=== PATIENT | female | born 1990 | race Caucasian/White ===

== ENCOUNTER 2021-07-19 05:09 | Inpatient (IN) ==
[2021-07-19] MEDS ORDERED: CITRIC ACID/SODIUM CITRATE 30 ML UDCUP PO PRN (05:22)
[2021-07-19] MEDS ORDERED: ceFAZolin 2,000 MG/50 ML DUPLEX IV PRN (05:22)
[2021-07-19] MEDS ORDERED: FAMOTIDINE 20 MG/2 ML VIAL IV PRN (05:22)
[2021-07-19] MEDS ORDERED: LACTATED RINGERS 1,000 ML IV ONE (05:25)
[2021-07-19] MEDS ORDERED: OXYTOCIN/LR 20 UNIT/1,000 ML BAG IV PRN (05:26)
[2021-07-19] MEDS ORDERED: LACTATED RINGERS 1,000 ML IV SCH (05:30)
[2021-07-19 05:57] LABS: Basophils % 0.6 % (0.0-0.8); Eosinophils # 0.2 10*3/uL (0.0-0.87); Eosinophils % 2.7 % (0.00-10.9); Hematocrit 31.9 VOL% (35.7-47.0); Hemoglobin 10.2 GM/DL (12.0-16.0); Immature Granulocytes % 0.6 %; Immature Granulocytes Absolute 0.04 #; Lymphocytes # 1.9 10*3/uL (1.4-4.0); Mean Corpuscular Volume 86.4 FL (87-102); Monocytes % 6.8 % (1.7-12.7); Neutrophils % 63.3 % (38.7-73.9); Platelet Count 201 T/CUMM (130-400); Red Blood Count 3.69 MC/CUMM (3.8-5.5); Red Cell Distribution Width 13.2 % (9.3-17.3); White Blood Count 7.2 T/CUMM (4-12)
[2021-07-19 06:21] LABS: Albumin 2.5 G/DL (3.4-5.0); Bilirubin,Total 0.7 MG/DL (0.20-1.00); Calcium 8.5 MG/DL (8.5-10.1); Osmolality,Calculated 276.4 MOS/KG (273-304); Total Protein 6.3 G/DL (6.4-8.2)
[2021-07-19] MEDS ORDERED: ONDANSETRON 4 MG/2 ML VIAL ONE (07:14)
[2021-07-19] MEDS ORDERED: BUPIVACAINE SPINAL 0.75% 2 ML AMP SPINAL ONE (07:14)
[2021-07-19] MEDS ORDERED: ePHEDrine 50 MG/ML VIAL ONE (07:26)
[2021-07-19] MEDS ORDERED: PHENYLEPHRINE 10 MG/1 ML VIAL IV ONE (07:26)
[2021-07-19] MEDS ORDERED: propofoL 200 MG/20 ML VIAL IV ONE (07:59)
[2021-07-19] MEDS ORDERED: SODIUM CHLORIDE 0.9% 100 ML IV ONE (07:59)
[2021-07-19] MEDS ORDERED: DEXAMETHASONE 4 MG/1 ML VIAL ONE (08:00)
[2021-07-19] MEDS ORDERED: ACETAMINOPHEN INJ 1,000 MG/100 ML VIAL IV ONE (08:00)
[2021-07-19] MEDS ORDERED: KETOROLAC 30 MG/1 ML VIAL ONE (08:00)
[2021-07-19 08:06] LABS: Cord Arterial Blood HCO3 20.7 MMOL/L
[2021-07-19 08:07] LABS: Cord Venous Blood HCO3 22.5 MMOL/L; Cord Venous Blood PO2 23.3 MMHG
[2021-07-19 08:10] LABS: Bilirubin,Urine Negative (Negative); Blood, Urine Negative (Negative); Glucose,Urine (UA) Negative (Negative); Ketones,Urine 20 mg/dL (Negative); Mucus,Urine Occasional /LPF (Occasional); Nitrite,Urine Negative (Negative); Protein,Urine Negative; RBC,Urine <1 /HPF (0-4); Squamous Epithelial Cell,Urine Occasional /HPF (0-10); Urine Appearance CLEAR (Clear); Urine Color Yellow (Yellow); Urine Specific Gravity 1.013 (1.001-1.035); Urine Urobilinogen < 2.0 EU/DL (0.2-1.0)
[2021-07-19] MEDS ORDERED: PHENYLEPHRINE 1 MG/10 ML SYRINGE IV ONE (08:23)
[2021-07-19] MEDS ORDERED: MEASLES/MUMPS/RUBELLA VACCINE 0.5 ML VIAL SUBCUT ONE (12:23)
[2021-07-19] MEDS ORDERED: OXYTOCIN/LR 20 UNIT/1,000 ML BAG IV ONE (12:23)
[2021-07-19] MEDS ORDERED: BISACODYL 10 MG SUPP RECTAL PRN (12:23)
[2021-07-19] MEDS ORDERED: ONDANSETRON 4 MG/2 ML VIAL IV PRN (12:23)
[2021-07-19] MEDS ORDERED: BENZOCAINE 20%/MENTHOL 0.5% SPRAY 56 GM CAN TOP PRN (12:23)
[2021-07-19] MEDS ORDERED: RHO(D) IMMUNE GLOBULIN 300 MCG SYRINGE IM ONE (12:23)
[2021-07-19] MEDS ORDERED: DIPH/TET/ACEL PERT BOOSTER VACCINE 0.5 ML VIAL IM ONE (12:23)
[2021-07-19] MEDS ORDERED: LANOLIN 50% CREAM 0.3 OZ TUBE TOP PRN (12:23)
[2021-07-19] MEDS ORDERED: HYDROCORTISONE 2.5% RECTAL CREAM 30 GM TUBE TOP PRN (12:23)
[2021-07-19] MEDS ORDERED: WITCH HAZEL PADS 100/JAR TOP PRN (12:23)
[2021-07-19] MEDS ORDERED: ACETAMINOPHEN 325 MG TABLET PO PRN (12:23)
[2021-07-19] MEDS ORDERED: ACETAMINOPHEN 500 MG TABLET PO SCH ×2 (12:27→14:00)
[2021-07-19] MEDS ORDERED: KETOROLAC 30 MG/1 ML VIAL IV SCH ×2 (12:30→14:00)
[2021-07-19] MEDS: oxyCODONE/ACETAMINOPHEN 5-325 MG TABLET PO PRN (12:42)
[2021-07-19] MEDS: ACETAMINOPHEN 500 MG TABLET PO SCH ×2 (15:04→22:17)
[2021-07-19] MEDS: KETOROLAC 30 MG/1 ML VIAL IV SCH ×2 (15:05→21:21)
[2021-07-19] MEDS: DOCUSATE SODIUM 100 MG CAPSULE PO SCH ×2 (19:09→21:21)
[2021-07-20] MEDS: ACETAMINOPHEN 500 MG TABLET PO SCH (02:17)
[2021-07-20] MEDS ORDERED: KETOROLAC 30 MG/1 ML VIAL IV ONE (03:03)
[2021-07-20] MEDS: IBUPROFEN 800 MG TABLET PO PRN ×3 (03:31→22:55)
[2021-07-20] MEDS: oxyCODONE/ACETAMINOPHEN 5-325 MG TABLET PO PRN ×4 (03:31→17:50)
[2021-07-20] MEDS: SIMETHICONE CHEW 125 MG TABLET PO PRN ×2 (03:32→14:15)
[2021-07-20 05:46] LABS: Basophils % 0.3 % (0.0-0.8); Eosinophils # 0.1 10*3/uL (0.0-0.87); Eosinophils % 1.1 % (0.00-10.9); Hematocrit 25.2 VOL% (35.7-47.0); Immature Granulocytes % 0.6 %; Immature Granulocytes Absolute 0.07 #; Lymphocytes # 2.3 10*3/uL (1.4-4.0); Lymphocytes % 19.1 % (21.3-54.2); Mean Corpuscular HGB Conc 32.1 GM/DL (32-36); Mean Corpuscular Volume 87.5 FL (87-102); Mean Platelet Volume 11.1 FL (9.6-12.0); Monocytes % 4.7 % (1.7-12.7); Neutrophils % 74.2 % (38.7-73.9); Platelet Count 187 T/CUMM (130-400); Red Cell Distribution Width 13.2 % (9.3-17.3)
[2021-07-20 06:00] LABS: Hemoglobin 8.1 GM/DL (12.0-16.0); Red Blood Count 2.88 MC/CUMM (3.8-5.5); White Blood Count 11.8 T/CUMM (4-12)
[2021-07-20] MEDS: IRON (CARBONYL)/VIT C/B12/FA TABLET PO SCH (08:32)
[2021-07-20] MEDS: MAGNESIUM HYDROXIDE SUSP 30 ML UDCUP PO PRN ×2 (08:32→22:55)
[2021-07-20] MEDS: DOCUSATE SODIUM 100 MG CAPSULE PO SCH ×2 (08:32→21:00)
[2021-07-21] MEDS: oxyCODONE/ACETAMINOPHEN 5-325 MG TABLET PO PRN ×2 (00:03→06:07)
[2021-07-21] MEDS: IBUPROFEN 800 MG TABLET PO PRN (06:07)
[2021-07-21 09:01] VITALS: BP 105/59
[2021-07-21] MEDS: MAGNESIUM HYDROXIDE SUSP 30 ML UDCUP PO PRN (09:27)
[2021-07-21] MEDS: IRON (CARBONYL)/VIT C/B12/FA TABLET PO SCH (09:27)
[2021-07-21] MEDS: SIMETHICONE CHEW 125 MG TABLET PO PRN (09:27)
[2021-07-21] MEDS: DOCUSATE SODIUM 100 MG CAPSULE PO SCH (09:27)
[2021-07-21] MEDS ORDERED: DIPH/TET/ACEL PERT BOOSTER VACCINE 0.5 ML VIAL IM ONE (10:31)
== END 2021-07-21 11:40 | disposition home or self-care (01) | DRG 784 ==
LOC: N.LD 05:09 → N.OB 12:34
PROVIDERS: ADMIT Specialist; ATTEND Specialist

== ENCOUNTER 2022-09-13 08:02 | Inpatient (IN) ==
[2022-09-13] MEDS ORDERED: ONDANSETRON 4 MG/2 ML VIAL ONE ×2 (08:36→18:11)
[2022-09-13] MEDS ORDERED: ONDANSETRON 4 MG/2 ML VIAL IV STA (08:51)
[2022-09-13] MEDS ORDERED: KETOROLAC 30 MG/1 ML VIAL IV STA (09:04)
[2022-09-13] MEDS ORDERED: SODIUM CHLORIDE 0.9% 1,000 ML IV STA (09:04)
[2022-09-13] MEDS ORDERED: HYDROmorphone 1 MG/1 ML SYRINGE IV STA ×2 (09:04→10:28)
[2022-09-13] MEDS ORDERED: HYDROmorphone 1 MG/1 ML SYRINGE ONE ×2 (09:06→18:19)
[2022-09-13 09:36] LABS: Basophils % 0.5 % (0.0-0.8); Eosinophils # 0.3 10*3/uL (0.0-0.87); Eosinophils % 3.5 % (0.00-10.9); Hematocrit 24.6 VOL% (35.7-47.0); Hemoglobin 6.9 GM/DL (12.0-16.0); Immature Granulocytes % 0.5 %; Immature Granulocytes Absolute 0.04 #; Lymphocytes # 1.1 10*3/uL (1.4-4.0); Lymphocytes % 12.8 % (21.3-54.2); Mean Corpuscular Volume 72.8 FL (87-102); Mean Platelet Volume 10.5 FL (9.6-12.0); Monocytes # 0.3 10*3/uL (0.11-0.8); Monocytes % 3.8 % (1.7-12.7); Neutrophils % 78.9 % (38.7-73.9); Platelet Count 327 T/CUMM (130-400); Red Blood Count 3.38 MC/CUMM (3.8-5.5); Red Cell Distribution Width 17.4 % (9.3-17.3); White Blood Count 8.9 T/CUMM (4-12)
[2022-09-13 09:46] LABS: Mucus,Urine Occasional /LPF (Occasional); RBC,Urine 284 /HPF (0-4); Squamous Epithelial Cell,Urine Few /HPF (0-10)
[2022-09-13 09:47] LABS: Urine Color Yellow (Yellow)
[2022-09-13 09:48] LABS: Bilirubin,Urine Negative (Negative); Blood, Urine Large mg/dL (Negative); Glucose,Urine (UA) Negative (Negative); Ketones,Urine 40 mg/dL (Negative); Nitrite,Urine Negative (Negative); Protein,Urine 30 mg/dL (Negative); Urine Appearance Slightly Cloudy (Clear); Urine Specific Gravity > 1.030 (1.001-1.035); Urine Urobilinogen 0.2 eU/dL (<2.0)
[2022-09-13 10:04] LABS: Hypochromia 1+; Microcytosis 1+
[2022-09-13 10:05] LABS: Ovalocytes Slight; Platelet Estimate Normal; Polychromasia Slight; Tear Drop Cells Slight
[2022-09-13 10:12] LABS: Albumin 3.6 G/DL (3.4-5.0); Bilirubin,Total 0.4 MG/DL (0.20-1.00); Calcium 7.9 MG/DL (8.5-10.1); Osmolality,Calculated 275.8 MOS/KG (273-304); Potassium 3.8 MMOL/L (3.5-5.1); Total Protein 7.1 G/DL (6.4-8.2)
[2022-09-13] MEDS ORDERED: ESTROGENS(CONJ) 25 MG VIAL IV ONE (10:31)
[2022-09-13 10:54] LABS: Mucus,Urine Occasional /LPF (Occasional); RBC,Urine 28 /HPF (0-4); Squamous Epithelial Cell,Urine Few /HPF (0-10)
[2022-09-13 10:55] LABS: Bilirubin,Urine Negative (Negative); Blood, Urine Large mg/dL (Negative); Glucose,Urine (UA) Negative (Negative); Ketones,Urine 40 mg/dL (Negative); Nitrite,Urine Negative (Negative); Protein,Urine Negative (Negative); Urine Appearance Clear (Clear); Urine Color Yellow (Yellow); Urine Specific Gravity > 1.030 (1.001-1.035)
[2022-09-13] MEDS ORDERED: IBUPROFEN 800 MG TABLET PO PRN (10:55)
[2022-09-13] MEDS ORDERED: HYDROmorphone 1 MG/1 ML SYRINGE IV PRN ×3 (10:55→13:10)
[2022-09-13] MEDS ORDERED: BISACODYL 10 MG SUPP RECTAL PRN ×2 (10:55→18:51)
[2022-09-13] MEDS ORDERED: MAGNESIUM HYDROXIDE SUSP 30 ML UDCUP PO PRN ×2 (10:55→18:51)
[2022-09-13] MEDS ORDERED: ACETAMINOPHEN 325 MG TABLET PO PRN ×2 (10:55→18:51)
[2022-09-13] MEDS ORDERED: ONDANSETRON 4 MG/2 ML VIAL IV PRN ×2 (10:55→18:51)
[2022-09-13] MEDS ORDERED: SODIUM CHLORIDE 0.9% 1,000 ML IV PRN (10:55)
[2022-09-13 10:56] LABS: Urine Urobilinogen 0.2 eU/dL (<2.0)
[2022-09-13] MEDS ORDERED: LACTATED RINGERS 1,000 ML IV SCH ×2 (11:00→19:00)
[2022-09-13] MEDS ORDERED: PROMETHAZINE 25 MG/1 ML VIAL IM PRN (13:10)
[2022-09-13] MEDS ORDERED: KETOROLAC 15 MG/1 ML VIAL IV PRN (16:21)
[2022-09-13] MEDS ORDERED: BUPIVACAINE 0.5% 50 ML VIAL ONE (17:11)
[2022-09-13] MEDS ORDERED: SUCCINYLCHOLINE 200 MG/10 ML VIAL ONE (17:12)
[2022-09-13] MEDS ORDERED: LIDOCAINE 2% 5 ML VIAL ONE (17:12)
[2022-09-13] MEDS ORDERED: fentaNYL 100 MCG/2 ML VIAL ONE (17:12)
[2022-09-13] MEDS ORDERED: ROCURONIUM 50 MG/5 ML VIAL IV ONE (17:12)
[2022-09-13] MEDS ORDERED: METOCLOPRAMIDE 10 MG/2 ML VIAL ONE (17:37)
[2022-09-13] MEDS ORDERED: CALCIUM CHLORIDE 1,000 MG/10 ML VIAL IV ONE (18:11)
[2022-09-13] MEDS ORDERED: DEXAMETHASONE 4 MG/1 ML VIAL ONE (18:11)
[2022-09-13] MEDS ORDERED: SEVOFLURANE 1 UNIT/15 MINUTE INH ONE (18:11)
[2022-09-13] MEDS ORDERED: KETOROLAC 30 MG/1 ML VIAL ONE (18:20)
[2022-09-13] MEDS ORDERED: oxyCODONE/ACETAMINOPHEN 5-325 MG TABLET PO PRN (18:51)
[2022-09-13] MEDS ORDERED: DOCUSATE SODIUM 100 MG CAPSULE PO PRN (18:51)
[2022-09-13] MEDS ORDERED: BENZOCAINE/MENTHOL LOZENGE 18/BOX PO PRN (18:51)
[2022-09-13] MEDS ORDERED: DOCUSATE SODIUM 100 MG CAPSULE PO SCH (21:00)
[2022-09-14 05:46] LABS: Basophils % 0.1 % (0.0-0.8); Hematocrit 32.5 VOL% (35.7-47.0); Hemoglobin 9.5 GM/DL (12.0-16.0); Immature Granulocytes % 0.4 %; Immature Granulocytes Absolute 0.04 #; Lymphocytes # 0.8 10*3/uL (1.4-4.0); Lymphocytes % 7.6 % (21.3-54.2); Mean Corpuscular HGB Conc 29.2 GM/DL (32-36); Mean Corpuscular Volume 76.8 FL (87-102); Mean Platelet Volume 10.4 FL (9.6-12.0); Monocytes # 0.3 10*3/uL (0.11-0.8); Neutrophils % 88.9 % (38.7-73.9); Platelet Count 340 T/CUMM (130-400); Red Blood Count 4.23 MC/CUMM (3.8-5.5); Red Cell Distribution Width 19.9 % (9.3-17.3); White Blood Count 10.5 T/CUMM (4-12)
[2022-09-14 08:30] VITALS: BP 94/50
== END 2022-09-14 08:20 | disposition home or self-care (01) | DRG 742 ==
LOC: N.ED 08:02 → N.EDINP 10:32 → N.OB 11:33
PROVIDERS: ADMIT Specialist; ATTEND Specialist